=== PATIENT | male | born 1995 | race African-American/Black ===

== ENCOUNTER 2020-09-05 22:49 | Emergency (ER) | payer SELFPAY ==
[2020-09-05] MEDS ORDERED: Lorazepam 0.5 MG TAB ONE (23:01)
== END 2020-09-06 07:04 | disposition home or self-care (01) ==
LOC: BURERS 22:49
DX: R00.2 Palpitations (principal); F14.10 Cocaine abuse, uncomplicated
CPT/HCPCS: 93005